=== PATIENT | female | born 1945 | race American Indian/Alaskan Native ===

== ENCOUNTER 2016-12-03 10:54 | Outpatient (CLI) | payer MEDICARE ==
--- NOTE | 2016-12-03 14:35 | Mammography Report ---
BONE DEXA:12/03/16 10:54:00 CLINICAL: Postmenopausal. COMPARISON: 02/09/14 TECHNIQUE: Two site bone DEXA performed on an Hologic scanner. FINDINGS: The average BMD of the left forearm is 0.686g/cm squared with a T-score of +2.4 and a Z-score of +4.6. This compares to 0.765g/cm squared on the last exam and represents a +5.1% change from the previous baseline. The average BMD of the left hip is 0.950g/cm squared with a T-score of -0.5 and a Z-score of +0.6. This compares to 1.104g/cm squared on the last exam and represents a -14.0% change from the previous baseline. IMPRESSION: WHO classification: Normal with average fracture risk based on both spine and left forearm measurements. Although there has been a significant decline in left hip BMD compared with the prior exam, the measurement is still within the normal range. RECOMMENDATION: Clinical correlation and routine screening. DEFINITIONS: BMD = Bone Mineral Density T-score = BMD related mean peak bone mass of young adult (mean expressed in Standard Deviation) Z-score = Age matched BMD expressed in SD World Health Organization (WHO) Diagnostic Criteria Normal T-score > -1 SD Osteopenia T-score between -1 and -2.4 SD Osteoporosis T-score -2.5 SD or below NOTE: BMD is not the only risk factor for fracture; also consider factors such as the patient's age, risk of falling, previous osteoporotic fracture, family history of osteoporotic fractures, current smoker, and low body weight. Z-scores are not calculated if >80 years of age.
== END 2016-12-03 10:55 | disposition home or self-care (01) ==
LOC: SPVWC 10:54
PROVIDERS: ATTEND Internal Medicine
DX: M81.0 Age-related osteoporosis without current pathological fracture (principal); Z78.0 Asymptomatic menopausal state
CPT/HCPCS: 77080

== ENCOUNTER 2021-03-18 13:39 | Outpatient (CLI) | payer MEDICARE ==
--- NOTE | 2021-03-18 15:07 | XRay Report ---
Pelvis and right hip 2 views INDICATION: Pain FINDINGS: There is moderate degenerative change in bilateral hips with joint space narrowing. Sacrum and sacroiliac joints appear normal. Hardware is in lower lumbar spine extending into the sacrum. IMPRESSION: Degenerative changes seen in the right hip and lower lumbar spine. Signer Name: Krishna Weeks MD Signed: 03/18/2021 3:03 PM Workstation Name: [id number]
== END 2021-03-18 13:40 | disposition home or self-care (01) ==
LOC: SPVIMAG 13:39
PROVIDERS: ATTEND Physical Medicine & Rehabilitation Pain Medicine
DX: M25.551 Pain in right hip (principal)